=== PATIENT | female | born 1950 | race Caucasian/White ===

== ENCOUNTER → 2016-09-01 | Outpatient (CLI) | payer OTHER ==
[~2016-09-01] MED LIST: ATARAX25 MG PO; LEVOTHROID(SYN75 MCG PO; VITAMIN D1000 UNIT PO; XOLAIR150 MG IM; ZANTAC (NON-FO150 MG PO; ZYRTEC10 MG PO
[2016-09-01 08:38] LABS: BASOPHIL # 0.1 K/uL (0.0-0.2); BASOPHIL % 0.9 %; EOSINOPHIL # 0.2 K/uL (0.0-0.5); EOSINOPHIL % 2.9 %; HEMATOCRIT 36.9 % (33.0-46.0); HEMOGLOBIN 11.7 g/dL (10.0-15.0); IMMATURE GRANULOCYTE % 0.2 %; LYMPHOCYTE # 0.8 K/uL (0.8-4.0); LYMPHOCYTE % 14.7 %; MCH 26.8 pg (27.0-34.0); MCHC 31.7 gm/dL (32.0-36.5); MCV 84.6 fl (83.0-98.0); MONOCYTE # 0.7 K/uL (0.0-1.0); MPV 9.8 fl (9.4-12.4); NEUTROPHIL # (ANC) 3.8 K/uL (1.8-7.8); NEUTROPHIL % 69.3 %; NRBC % 0 /100WBC (0-0.00); PLATELET COUNT 372 K/uL (150-450); RBC 4.36 M/uL (3.50-5.50); RDW-CV 15.8 % (11.9-14.6); WBC 5.5 K/uL (4.0-11.0)
== END | disposition disaster alternative care site (69) ==
LOC: GLAB 08:00
PROVIDERS: Pediatrics
DX: L50.8 Other urticaria (principal)

== ENCOUNTER → 2016-10-22 | Outpatient (CLI) | payer OTHER ==
--- NOTE | 2016-10-22 10:00 | NUR ---
[facility]. Introduced self and role of nurse navigator. Nurse Navigator brochure given with my contact information circled on back. Permission received for follow up call Tuesday.
--- NOTE | 2016-10-25 16:55 | NUR ---
Follow up call post breast biopsy. Patient doing well. Slight bruising. Minimal discomfrot. No questions or concerns.
== END | disposition disaster alternative care site (69) ==
LOC: GPOC 10-14 15:00 → GBCOE 10-18 14:00 → GRAD 10-19 09:30 → GOPP 10-19 09:30 → GPOC 09:00 → GBCOE 09:26
DX: N60.01 Solitary cyst of right breast (principal); R92.0 Mammographic microcalcification found on diagnostic imaging of breast
CPT/HCPCS: J7050